=== PATIENT | female | born 1955 | race Caucasian/White ===

== ENCOUNTER 2021-05-23 07:58 | Day surgery (SDC) | payer OTHER, SELFPAY ==
[~2021-05-23] VITALS: Ht 170.2 cm; Wt 83.0 kg
[2021-05-23] MEDS ORDERED: LIDOCAINE 2% 100 MG/5 ML UJET TP ONE (10:15)
[2021-05-23] MEDS ORDERED: MIDAZOLAM 5 MG/5 ML VIAL ONE (10:15)
[2021-05-23] MEDS ORDERED: fentaNYL citrate 0.05 MG/ML VIAL ONE (10:15)
[2021-05-23] MEDS: fentaNYL citrate 0.05 MG/ML VIAL IVP ONE (10:39)
[2021-05-23] MEDS: MIDAZOLAM 2 MG/2 ML VIAL IVP ONE (10:40)
[2021-05-23] MEDS: LIDOCAINE 2% 100 MG/5 ML UJET TP ONE (10:56)
== END 2021-05-23 12:00 | disposition home or self-care (01) ==
LOC: MDS 07:58 → MMU 07:59 → MDS 12:00
PROVIDERS: ATTEND Internal Medicine Gastroenterology
DX: Z12.11 Encounter for screening for malignant neoplasm of colon (principal); D12.3 Benign neoplasm of transverse colon; K29.70 Gastritis, unspecified, without bleeding; I10 Essential (primary) hypertension; E78.00 Pure hypercholesterolemia, unspecified; E11.9 Type 2 diabetes mellitus without complications; M19.90 Unspecified osteoarthritis, unspecified site; Z79.84 Long term (current) use of oral hypoglycemic drugs; Z79.899 Other long term (current) drug therapy; Z20.822 Contact with and (suspected) exposure to COVID-19
CPT/HCPCS: 36415; 43239; 45385; 86677; 87426; J2250; J3010